=== PATIENT | male | born 1980 | race African-American/Black ===

== ENCOUNTER 2017-07-23 17:27 | Emergency (ER) | payer SELFPAY ==
[~2017-07-23] VITALS: Ht 182.9 cm; Wt 74.8 kg
[~2017-07-23 17:27] MED LIST: FAMO-63 PO; HYDR-971 PO; METR500T PO; ONDA4TAB7 PO
[2017-07-23] MEDS ORDERED: DIPHTH,PERTUSS(ACELL),TET TOX 0.5 ML DISP.SYRIN. VAX IM ONE (18:00)
[2017-07-23 18:06] LABS: BASO # 0.1 x10^3/uL (0.0-0.2); BASO % 1 % (0-3); EOS % 1 % (0-3); HEMATOCRIT 41.6 % (39.0-53.0); HEMOGLOBIN 13.9 g/dL (13.0-17.5); LYMPH # 3.1 x10^3/uL (1.0-4.8); LYMPH % 35 % (24-48); MEAN CORPUSCULAR HEMOGLOBIN 30 pg (25-35); MEAN CORPUSCULAR HGB CONC 33 g/dL (31-37); MEAN CORPUSCULAR VOLUME 89 fL (79-100); MONO % 7 % (0-9); NEUT % 56 % (31-73); PLATELET COUNT 193 x10^3/uL (140-400); RED BLOOD COUNT 4.67 x10^6/uL (4.30-5.70); RED CELL DISTRIBUTION WIDTH 14.1 % (11.5-14.5); WHITE BLOOD COUNT 8.9 x10^3/uL (4.0-11.0)
[2017-07-23] MEDS ORDERED: LIDOCAINE 1% Multi-Dose 20 ML VIAL. ID ONE (18:15)
[2017-07-23 18:18] LABS: CALCIUM 9.2 mg/dL (8.5-10.1); GFR 103.5
[2017-07-23] MEDS: fentaNYL PF VIAL 100 MCG/2 ML VIAL IV PRN ×2 (18:19→19:43)
[2017-07-23 18:30] LABS: ALBUMIN 4.1 g/dL (3.4-5.0); ALBUMIN/GLOBULIN RATIO 1.1 (1.0-1.7); TOTAL BILIRUBIN 0.3 mg/dL (0.2-1.0); TOTAL PROTEIN 7.8 g/dL (6.4-8.2)
[2017-07-23] MEDS ORDERED: HYDR-971 PO (19:33)
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
[2017-07-23 19:45] VITALS: BP 111/67
--- NOTE | 2017-07-24 08:41 | RAD ---
Acute abdomen series with chest, 3 views, 07/23/2017: History: Abdominal pain Gas is present in large and small bowel in a nonspecific pattern. No free air is seen in the abdomen. There is no evidence of organomegaly. Lower pelvic calcifications are probably phleboliths. The heart size is normal. The lungs are clear. There is no evidence of pleural fluid. IMPRESSION: No acute cardiopulmonary abnormality is detected.
== END 2017-07-23 19:50 | disposition home or self-care (01) ==
LOC: ER 17:27
DX: S61.210A Laceration without foreign body of right index finger without damage to nail, initial encounter (principal); G89.29 Other chronic pain; R10.32 Left lower quadrant pain; W26.8XXA Contact with other sharp object(s), not elsewhere classified, initial encounter; Y93.39 Activity, other involving climbing, rappelling and jumping off; Y92.89 Other specified places as the place of occurrence of the external cause; Y99.8 Other external cause status
CPT/HCPCS: 12001; 36415; 74022; 80053; 83690; 85025; 90471; 90715; 96374; 96376; 99285; J3010

== ENCOUNTER 2018-03-23 08:26 | Emergency (ER) | payer SELFPAY ==
[2018-03-23] MEDS ORDERED: IV NORMAL SALINE 1000ML BAG 1,000 ML IV (10:15)
== END 2018-03-23 10:30 | disposition left against medical advice (07) ==
LOC: ER 10:30
DX: F41.9 Anxiety disorder, unspecified (principal); F41.0 Panic disorder [episodic paroxysmal anxiety]; F12.10 Cannabis abuse, uncomplicated; Z79.899 Other long term (current) drug therapy; Z88.8 Allergy status to other drugs, medicaments and biological substances
CPT/HCPCS: 99284